=== PATIENT | female | born 1950 | race Caucasian/White ===

== ENCOUNTER → 2022-02-20 | Outpatient (CLI) | payer OTHER ==
[2022-02-22 13:11] LABS: HPV 16 Negative (Negative); HPV 18 Negative (Negative); HPV OTHER HR TYPES Negative (Negative)
== END | disposition home or self-care (01) ==
LOC: LAB 15:18 → LAB SHORT 15:18
PROVIDERS: Obstetrics & Gynecology
DX: Z01.419 Encounter for gynecological examination (general) (routine) without abnormal findings (principal)
CPT/HCPCS: 87624; G0123

== ENCOUNTER 2024-04-27 07:50 | Day surgery (SDC) | payer OTHER ==
[2024-04-27] VITALS (13 sets, daily range): BP systolic 103–155; BP diastolic 36–71
[~2024-04-27] VITALS: Ht 154.9 cm; Wt 86.0 kg
[~2024-04-27 07:50] MED LIST: 8 HOUR ACETAMI650 MG PO; ALBU90OI INH; ALBUTEROL0.63 MG/3 INH; ATOR10 PO; AZELASTINE137 MCG/01; AZELASTINE137 MCG/06; Acetaminophen 500 MG Tab PO SCH; BENEFIBER236 G1 PO; CENTRUM WOMEN1 EAC2 PO; CeFAZolin Sodium 2,000 MG in NS 100 ML IV SCH; Chlorhexidine Mouth Care 15 ML UDC MT SCH; FAMO20 PO; LOSA50 PO; Lactated Ringer's 1,000 ML IV SCH; METO100ER PO; NARA2.5 PO; NORT10 PO; OxyCODONE HCL 10 MG TABCR PO SCH; ROSUVASTATIN CA10 MG PO; TRAM50 PO; Tranexamic Acid 100 ML IV SCH; VOLTAREN ARTHRI20 GM TOP
[2024-04-27] MEDS ORDERED: Ropivacaine 0.5% HCl/Pf 123.125 MG,EPINEPHrine HCL 0.25 MG,Clonidine HCl/Pf 40 MCG in N... INFIL SCH (09:20)
[2024-04-27] MEDS ORDERED: Bisacodyl 10 MG Supp PR PRN (09:45)
[2024-04-27] MEDS ORDERED: Promethazine HCl 25 MG Tab PO PRN (09:45)
[2024-04-27] MEDS ORDERED: DiphenhydrAMINE HCL 25 MG Cap PO PRN (09:45)
[2024-04-27] MEDS ORDERED: Midazolam HCl 1MG / ML 2ML Vial ONE ×3 (09:47→10:51)
[2024-04-27] MEDS ORDERED: FentaNYL Citrate 50 MCG/ML 2 ML Injection ONE (09:47)
[2024-04-27] MEDS ORDERED: Magnesium Hydroxide Conc 10 ML UDC PO PRN (09:50)
[2024-04-27] MEDS ORDERED: Ondansetron HCl 2 MG / ML 2ML Vial IV PRN (09:50)
[2024-04-27] MEDS ORDERED: Metoclopramide HCl 5MG / ML 2ML Vial IV PRN (09:50)
[2024-04-27] MEDS ORDERED: FLU VACC TS2024-25(6MOS UP)/PF 45 MCG/0.5 ML SYRINGE IM PRN (09:50)
[2024-04-27] MEDS ORDERED: HYDROmorphone HCl/Pf 1MG SYR IV PRN (09:50)
[2024-04-27] MEDS ORDERED: OxyCODONE HCL 5 MG TAB PO PRN ×2 (09:50→09:55)
[2024-04-27] MEDS ORDERED: Lactated Ringer's 1,000 ML IV SCH (09:50)
--- NOTE | 2024-04-27 09:51 | NUR ---
History, Chart, Medications and Allergies reviewed before start of procedure. Patient up to Ambulate independently. Gait steady. Pre-Op teaching done. Pt verbalizes understanding. Patient confirms NPO status and agrees with scheduled surgery. Patient reports completing Chlorhexadine shower X2 prior to admission to hospital. Surgical site prepped with 2% Chlorhexidine cloth wipe. Patient States Post-Procedure ride home has been arranged.
[2024-04-27] MEDS ORDERED: Ondansetron HCl 2 MG / ML 2ML Vial ONE (09:53)
[2024-04-27] MEDS ORDERED: Dexamethasone Sod Phos 10 MG/ML 1ML VIAL ONE (09:53)
[2024-04-27] MEDS ORDERED: ePHEDrine Sulfate 50 MG/ML 1ML Injection ONE (09:53)
[2024-04-27] MEDS ORDERED: Prochlorperazine Edisylate 10 mg Vial IV PRN (09:55)
[2024-04-27] MEDS ORDERED: Albuterol HFA200 ACT/6.7 GM INH INH PRN (10:00)
[2024-04-27] MEDS ORDERED: SUMAtriptan succinate 50 MG Tab PO PRN (10:05)
[2024-04-27] MEDS ORDERED: Phenylephrine HCl 10mg/ml 1 ml Vial ONE (10:14)
[2024-04-27] MEDS ORDERED: CeFAZolin Sodium 1000 mg Vial ONE (11:12)
--- NOTE | 2024-04-27 12:40 | NUR ---
ARRIVAL NOTE PT INTO ROOM 214 FROM PACU. VSS, PT IS AWAKE AND FOLLOWS COMMANDS. STILL REPORTS SOME NUMBNESS IN BLE FROM SPINAL BUT IS ABLE TO WIGGLE TOES. PAIN PILL GIVEN PER EMAR. CARLIE GOINS, POLAR PACK ON. PT INSTRUCTED REGARDING CALL LIGHT.
[2024-04-27] MEDS ORDERED: Acetaminophen 500 MG Tab PO SCH (16:00)
[2024-04-27] MEDS ORDERED: ASPI81CH PO (16:56)
--- NOTE | 2024-04-27 17:30 | NUR ---
DISCHARGE NOTE PT IS VOIDING, TOLERATING REG DIET AND FLUIDS. AMBULATING 1 ASST SB W/ FWW AND GB. DRESSING C/D/I. PT DENIES N/T IN BLE, CAP REFILL IN R TOES 2 SECS. PAIN MANAGED W/ PO PAIN MEDS PER EMAR. PT HAS ALLERGY TO NSAIDS, CONFIRMED W/ DR. MONTALVO THAT ASPIRIN FOR HOME MED IS OK, PT STATES ASPIRIN SENSITIVITY TEST WAS DONE PRE OP. VSS. D/C INSTRUCTIONS GONE OVER W/ PATIENT AND FAMILY, COPY GIVEN TO PT. DRESSINGS GIVEN TO PT WELL. PT DC'D TO PRIVATE RIDE HOME VIA W/C W/ PERSONAL BELONGINGS.
[2024-04-27] MEDS ORDERED: CeFAZolin Sodium 2,000 MG in NS 100 ML IV SCH (18:00)
[2024-04-27] MEDS ORDERED: Rosuvastatin Calcium 10 MG Tab PO SCH (21:00)
[2024-04-27] MEDS ORDERED: Losartan Potassium 50 MG Tab PO SCH (21:00)
[2024-04-27] MEDS ORDERED: Famotidine 20 MG Tab PO SCH (21:00)
[2024-04-27] MEDS ORDERED: Metoprolol Succinate 50 MG TABCR PO SCH (21:00)
[2024-04-27] MEDS ORDERED: Docusate Sodium 100 MG Cap PO SCH (21:00)
[2024-04-28] MEDS ORDERED: Multivitamins/Minerals 1 Tab PO SCH (09:00)
[2024-04-28] MEDS ORDERED: Azelastine 0.1% Nasal Spray SCH (09:00)
[2024-04-28] MEDS ORDERED: Guar Gum, Partially Hydrolyzed 4 GM Pack PO SCH (09:00)
[2024-04-28] MEDS ORDERED: Aspirin 81 MG Chew PO SCH (09:00)
== END 2024-04-27 17:35 | disposition home or self-care (01) ==
LOC: ORSCMMR 07:50 → ORD 09:15 → ORSCMMR 09:15 → SURS 12:28 → ORSCMMR 17:35
PROVIDERS: Orthopaedic Surgery
PROC: 0SR90JZ Replacement of Right Hip Joint with Synthetic Substitute, Open Approach (ICD-10-PCS; principal; 2024-04-27 09:15)
DX: M16.11 Unilateral primary osteoarthritis, right hip (principal); I10 Essential (primary) hypertension; E78.5 Hyperlipidemia, unspecified; Z79.899 Other long term (current) drug therapy
CPT/HCPCS: 72170; 82947; 97110; 97116; 97162; A6010; A9270; C1776; J0171; J0690; J0735; J1100; J2250; J2371; J2405; J2795; J3010; J7120